=== PATIENT | male | born 1975 | race Caucasian/White ===

== ENCOUNTER 2024-12-30 05:18 | Emergency (ER) | payer BC, SELFPAY ==
[2024-12-30 05:20] VITALS: BP 162/101
[2024-12-30 05:33] VITALS: BP 144/97
--- NOTE | 2024-12-30 05:54 | ED.GENMED ---
History of Present Illness
<Cayetano Garza, DO - Last Filed: 12/30/24 05:56>
General
Chief Complaint: Abdominal Pain
Source: patient
Exam Limitations: none
Time Seen by Provider: 12/30/24 05:49
History of Present Illness
History of Present Illness:
See MDM
Past History
<Cayetano Garza, DO - Last Filed: 12/30/24 05:56>
Past History
ED Past Medical History: Other (Kidney stones)
ED Past Surgical History: None
Social History
Tobacco: Non-smoker
Phy Exam
<Cayetano Garza, DO - Last Filed: 12/30/24 05:56>
Physical Exam
Physical Exam:
See MDM
Course
<Cayetano Garza, DO - Last Filed: 12/30/24 05:56>
Orders/Labs/Results
Orders:
Orders
12/30/24 05:25
IV Insert/Care/Rem.- Treatment PRN
Straight cath- Treatment ONCE
12/30/24 05:53
CT Abd/pelvis W Iv Cont Urgent
Comment:
Reason For Exam: LLQ pain
Ketorolac [Toradol] 30 mg IV NOW STA
12/30/24 05:54
Complete Blood Count/With Diff Urgent
Comprehensive Metabolic Panel Urgent
Lipase Urgent
Urinalysis Reflex To Culture Urgent
Date Specimen was Collected: 12/30/24
Time Specimen was Collected: 05:25
Urine Microscopic Reflex Cult Urgent
12/30/24 06:39
Tamsulosin [Flomax] 0.4 mg PO NOW STA
Abnormal Lab Results
12/30/24
05:54
WBC 4.4 L 10^3/uL
(4.8-10.8)
Absolute Lymphs (auto) 1.1 L 10^3/uL
(1.2-3.4)
Absolute Monos (auto) 0.7 H 10^3/uL
(0.1-0.6)
Monocytes % 14.7 H %
(1.7-9.3)
BUN 21 H mg/dl
(9-20)
Glucose 118 H mg/dl
(70-99)
Urine RBC 3-6 A /HPF
(0-2)
Urine Bacteria (Reflex) Few A
(Negative)
Urine Albumin (Reflex) 2+ A
(Neg - Trace)
12/30/24 05:54
12/30/24 05:54
Vital Signs
Initial and Last Documented VS:
Initial Vital Signs
Temp Pulse Resp BP Pulse Ox
36.5 C 68 20 162/101 97
12/30/24 05:20 12/30/24 05:20 12/30/24 05:20 12/30/24 05:20 12/30/24 05:20
Last Documented Vital Signs
Temp Pulse Resp BP Pulse Ox
36.5 C 67 12 136/91 96
12/30/24 05:20 12/30/24 07:30 12/30/24 07:30 12/30/24 07:05 12/30/24 07:30
<James Garcia MD - Last Filed: 12/30/24 15:39>
Orders/Labs/Results
Orders:
Orders
12/30/24 05:25
IV Insert/Care/Rem.- Treatment PRN
Straight cath- Treatment ONCE
12/30/24 05:53
CT Abd/pelvis W Iv Cont Urgent
Comment:
Reason For Exam: LLQ pain
Ketorolac [Toradol] 30 mg IV NOW STA
12/30/24 05:54
Complete Blood Count/With Diff Urgent
Comprehensive Metabolic Panel Urgent
Lipase Urgent
Urinalysis Reflex To Culture Urgent
Date Specimen was Collected: 12/30/24
Time Specimen was Collected: 05:25
Urine Microscopic Reflex Cult Urgent
12/30/24 06:39
Tamsulosin [Flomax] 0.4 mg PO NOW STA
Abnormal Lab Results
12/30/24
05:54
WBC 4.4 L 10^3/uL
(4.8-10.8)
Absolute Lymphs (auto) 1.1 L 10^3/uL
(1.2-3.4)
Absolute Monos (auto) 0.7 H 10^3/uL
(0.1-0.6)
Monocytes % 14.7 H %
(1.7-9.3)
BUN 21 H mg/dl
(9-20)
Glucose 118 H mg/dl
(70-99)
Urine RBC 3-6 A /HPF
(0-2)
Urine Bacteria (Reflex) Few A
(Negative)
Urine Albumin (Reflex) 2+ A
(Neg - Trace)
12/30/24 05:54
12/30/24 05:54
Vital Signs
Initial and Last Documented VS:
Initial Vital Signs
Temp Pulse Resp BP Pulse Ox
36.5 C 68 20 162/101 97
12/30/24 05:20 12/30/24 05:20 12/30/24 05:20 12/30/24 05:20 12/30/24 05:20
Last Documented Vital Signs
Temp Pulse Resp BP Pulse Ox
36.5 C 67 12 136/91 96
12/30/24 05:20 12/30/24 07:30 12/30/24 07:30 12/30/24 07:05 12/30/24 07:30
<Cayetano Garza, DO - Last Filed: 12/30/24 05:56>
MDM/Problems Addressed
Differential Diagnosis Includes:
Note:
CHIEF COMPLAINT(S)
Abdominal pressure and pain with nausea.
HISTORY OF PRESENT ILLNESS
The patient is a 49-year-old male experiencing abdominal pressure and pain after using the bathroom earlier today. The patient likens the sensation to a previous experience with a kidney stone, characterized by a sensation of pressure from the
inside. The pain is described as intermittent and is associated with nausea. The patient denies any back pain, which can sometimes be associated with kidney stones. He also reports difficulty urinating, similar to prior experiences with kidney
stones. However, patient does state he has a prior history of diverticulitis
PHYSICAL EXAM
General: Alert, no acute distress. Mildly uncomfortable
Skin: Warm, dry.
Head: Normocephalic, atraumatic
Neck: Appears supple, trachea midline.
Eyes, Ears, Nose, Mouth, and Throat: Moist mucous membranes
Cardiovascular: No signs of cyanosis
Respiratory: Respirations are non-labored.
Abdomen: Non-distended. Mild left lower quadrant tenderness without rebound
Musculoskeletal: No deformities
Neurological: No focal neurological deficit observed.
Psychiatric: Cooperative, appropriate mood and affect.
PLAN
- Order a computed tomography (CT) scan of the abdomen with intravenous contrast to evaluate for potential kidney stones or other abdominal pathologies such as diverticulitis.
- Administer intravenous ketorolac (Toradol) for pain management.
- Address nausea as needed.
DIFFERENTIAL DIAGNOSIS
The Differential Diagnosis includes, in no particular order and is not limited to:
- Kidney stones
- Diverticulitis
- Urinary tract infection
- Hydronephrosis
- Gastroenteritis
- Abdominal aortic aneurysm
- Appendicitis
- Intestinal obstruction
- Pyelonephritis
- Hepatobiliary disease
SUMMARY OF ENCOUNTER
The patient was evaluated in the emergency department for abdominal pressure and pain with nausea, reminiscent of a previous kidney stone episode. Given the atypical presentation, a CT scan with contrast was ordered to assess for kidney stones or
other abdominal issues. IV ketorolac was administered for pain relief. The subsequent plan and care summary were to be communicated to the next attending physician due to a shift change.
DISPOSITION
Pending further assessment and care under the incoming physician.
MEDICAL DECISION MAKING
- Complexity of Data Reviewed: Chronic conditions affecting care [Kidney stone history]
- Data:
- Category 1: CT scan of abdomen with contrast ordered to evaluate for stones and other pathologies.
- Risk: Prescription drug management of pain with ketorolac, consideration of imaging with risks associated with contrast use, differential diagnosis involving potential need for surgical intervention.
<Cayetano Garza DO - Last Filed: 12/30/24 05:56>
*Pulse Oximetry
SaO2: 97
Oxygen Mode of Delivery: Room air
<James Garcia MD - Last Filed: 12/30/24 15:39>
*Pulse Oximetry
Patient hypoxic: no (96%)
*Critical Care Note
Total Time (30-74mins, 75-104mins- exclusive of procedures): Not Applicable
<James Garcia MD - Last Filed: 12/30/24 15:39>
Update Note
Update Note:
UPDATE (James Garcia MD)
I have seen and evaluated the patient after signout and reviewed all labs and imaging.
Focused HPI: 49-year-old male with past medical history as noted presents for evaluation of abdominal pain. Patient reports onset of symptoms around 4 AM after he got up to urinate and symptoms have been constant since then. He reports a pressure
sensation left lower abdomen. He has not noticed any dysuria or hematuria this morning. He did not have a bowel movement this morning. Denies any nausea or vomiting. He does have a history of diverticulitis and kidney stones in the past but
cannot recall if symptoms today are similar.
Physical exam: Awake and alert not in distress. Hypertensive but otherwise normal vitals. Abdomen soft, minimally tender left lower quadrant. No peritoneal signs or masses.
Medical Decision Makin-year-old male presents for evaluation of left lower quadrant abdominal pain that started this morning. He does have a history of both nephrolithiasis and diverticulitis. Vitals and exam are as above. He received IV
Toradol prior to my assessment and this improved his pain. He had labs sent off including a CBC and a CMP�CBC shows marginal leukopenia with WBC of 4.4, CMP no clinically significant abnormalities�notably normal renal function. His urinalysis is
positive for blood. We are awaiting results of CT scan.
CT reviewed by me shows obstructive nephrolithiasis distal left ureter with mild hydronephrosis. Awaiting final radiology report. Patient appears comfortable, no evidence of sepsis or infection with acceptable renal function. Stone appears
relatively small. I think he is a reasonable candidate for trial of passage if pain remains well-controlled. Continue to monitor pending final CT report.
Reviewed vision radiology report�2 mm stone noted distal left ureter with hydronephrosis. Patient pain remains well-controlled. Plan to discharge patient instructions for straining urine, Flomax daily until stone passes. Advised to take NSAIDs
for pain and he was prescribed a very short course of oxycodone only for breakthrough severe pain. Stable for discharge for trial of passage. Spoke about follow-up plan and return precautions and all questions answered.
ED Attending Note
<Cayetano Garza, DO - Last Filed: 12/30/24 05:56>
-
Portions of this chart may have been created with voice recognition software.� Occasional wrong word or��sound alike� substitutions may have occurred due to the inherent limitations of voice recognition software.
Discharge Plan
Departure
Patient Disposition: Home (Routine Discharge)
Date of Disposition: 12/30/24
Time of Disposition: 07:14
Patient with high blood pressure during this ER visit?: Yes
Discharge Problem:
Left nephrolithiasis
Instructions: Kidney Stones (DC)
Prescriptions:
New
tamsulosin 0.4 mg capsule
0.4 mg PO DAILY Qty: 10 0RF
oxycodone 5 mg tablet
5 mg PO Q8H PRN (Reason: Pain) Qty: 7 0RF
Referrals:
Fadi Anna MD [Family Provider, Family Practice] - Follow up in 1 week
Alivia Cook MD [Active, Urology] - Call in 1-3 days for appt
Activity Restrictions/Additional Instructions:
Thank you for visiting the Emergency Department at [facility].
1. Please schedule a follow up appointment as directed. Call first thing tomorrow morning to make an appointment.
2. If indicated, please take your medications as instructed and indicated on discharge paperwork.
3. If any of your symptoms do not improve, or persist, or become more severe within 6-12 hours, please return to the emergency department for further care.
4. Please return to the emergency department if you develop a headache, neck pain/stiffness, fever greater than 100.4F, chest pain, shortness of breath, persistent nausea, vomiting, slurred speech, difficulty walking, numbness/tingling, weakness,
signs of infection or any other symptoms that are worrisome to you.
Please call [phone] if you have any questions.
Interventions
Interventions:
*Risk Screen - Suicide Last Done: 12/30/24 05:20
*General Assessment Last Done: 12/30/24 05:20
*Neglect/Abuse Screening Last Done: 12/30/24 05:20
*ED- Fall Risk Assessment Last Done: 12/30/24 05:20
*ED COVID-19 Vaccine History Last Done: 12/30/24 05:20
*ED Influenza Vaccine History Last Done: 12/30/24 05:20
*Nursing Disposition Last Done: 12/30/24 08:00
RO-Mdtbet-Pypxijjucn Assessment Last Done: 12/30/24 06:23
Discharge Date and Time
Discharge Date/Time: 12/30/24 08:00
Print Language: BULGARIAN
[2024-12-30] MEDS: TORADOL 30 MG IV (05:57)
[2024-12-30 06:00] VITALS: BP 140/104
[2024-12-30 06:02] VITALS: BMI 34.9
[2024-12-30 06:05] LABS: Urine Character Clear (Clear)
[2024-12-30 06:07] LABS: Hematocrit 41.8 % (39.0-52.0); Hemoglobin 14.7 g/dL (13.0-18.0); Mean Corp Hgb Conc. 35.2 g/dL (33.0-37.0); Mean Corpuscular Volume 83.9 fL (80.0-94.0); Nucleated Red Blood Cells % 0 % (-); Platelet Count 249 10^3/uL (130-400); Red Cell Dist. Width 12.6 % (11.5-14.5)
[2024-12-30 06:20] LABS: ALT (SGPT) 38 U/L (0-50); AST (SGOT) 51 U/L (17-59); Albumin 4.1 g/dl (3.5-5.0); Alkaline Phosphatase 56 U/L (38-126); Blood Urea Nitrogen 21 mg/dl (9-20); Calcium 9.0 mg/dl (8.4-10.2); Carbon Dioxide 26 mmol/L (22-30); Chloride 107 mmol/L (98-107); Estimated Creatinine Clearance 89 ml/min; Glucose 118 mg/dl (70-99); Lipase 142 U/L (23-300); Potassium 4.0 mmol/L (3.5-5.1); Sodium 136 mmol/L (135-145); Total Protein 6.9 g/dl (6.3-8.2); eGFR > 60.00
[2024-12-30 07:05] VITALS: BP 136/91
[2024-12-30] MEDS: FLOMAX 0.4 MG PO (07:05)
== END 2024-12-30 08:00 | disposition home or self-care (01) ==
LOC: EMR 05:18
PROVIDERS: EMERGENCY PHYSICIAN Student in an Organized Health Care Education/Training Program; FAMILY PHYSICIAN Family Medicine
DX: N20.2 Calculus of kidney with calculus of ureter (principal)
CPT/HCPCS: 99284; 96374; 74177; 80053; 81003; 81015; 83690; 85025; Q9967

== ENCOUNTER 2025-01-03 17:52 | Emergency (ER) | payer BC, SELFPAY ==
[2025-01-03 17:56] VITALS: BP 173/105
[2025-01-03 18:18] LABS: Hematocrit 42.7 % (39.0-52.0); Hemoglobin 14.4 g/dL (13.0-18.0); Mean Corp Hgb Conc. 33.7 g/dL (33.0-37.0); Mean Corpuscular Volume 86.3 fL (80.0-94.0); Nucleated Red Blood Cells % 0 % (-); Platelet Count 267 10^3/uL (130-400); Red Cell Dist. Width 12.4 % (11.5-14.5)
[2025-01-03 18:27] LABS: ALT (SGPT) 34 U/L (0-50); AST (SGOT) 41 U/L (17-59); Albumin 4.3 g/dl (3.5-5.0); Alkaline Phosphatase 58 U/L (38-126); Blood Urea Nitrogen 31 mg/dl (9-20); Calcium 9.6 mg/dl (8.4-10.2); Carbon Dioxide 26 mmol/L (22-30); Chloride 103 mmol/L (98-107); Glucose 101 mg/dl (70-99); Potassium 4.3 mmol/L (3.5-5.1); Sodium 134 mmol/L (135-145); Total Protein 7.3 g/dl (6.3-8.2); eGFR 48.81
[2025-01-03] MEDS: DILAUDID 0.5 MG IV (20:25)
[2025-01-03] MEDS: ZOFRAN 4 MG IV (20:25)
[2025-01-03] MEDS: NSS 1000 IV (20:26)
[2025-01-03 20:28] LABS: Urine Character Clear (Clear)
[2025-01-03 20:33] VITALS: BP 163/96
[2025-01-03 20:35] VITALS: BMI 35.8
[2025-01-03 20:36] LABS: Urine Squamous Cell 0-2 /LPF (Few)
[2025-01-03 20:37] LABS: Urine Red Blood Cell 0-2 /HPF (0-2); Urine White Cell 0-2 /HPF (0-5)
--- NOTE | 2025-01-03 22:32 | ED.GENMED ---
History of Present Illness
General
Chief Complaint: Flank Pain
Source: patient and spouse
Exam Limitations: none
Time Seen by Provider: 01/03/25 19:19
Nursing documentation reviewed up to this point in time: agreed with
History of Present Illness
History of Present Illness:
Patient to the emergency department for evaluation of worsening left flank pain. He was seen in the emergency department on Wednesday and diagnosed with a left distal ureteral 2 mm kidney stone. He was discharged home with pain medications, and
Flomax. He has an appointment scheduled for next week with urology for follow-up. Patient states he was managing with p.o. Tylenol, however states today the pain became much worse. Was brought to the emergency department by spouse for evaluation.
he has not taken any narcotic pain medication.
Past History
Past History
ED Past Medical History: Other (Kidney stones)
ED Past Surgical History: None
Social History
Tobacco: Non-smoker
Review of Systems
Review of Systems
Allergies reviewed?: Yes
All Other Systems: ROS reviewed and negative except as documented in HPI and ROS
Constitutional: Reports no symptoms
EENT: Reports no symptoms
Respiratory: Reports no symptoms
Cardiac: Reports no symptoms
ABD/GI: Reports no symptoms
: Reports flank pain
Musculoskeletal: Reports no symptoms
Skin: Reports no symptoms
Neurological: Reports no symptoms
Psychiatric: Reports no symptoms
Phy Exam
General Physical Exam
General Presentation: moderate distress
General age: appears stated age
General Skin: warm and dry
General Habitus: normal
General Mental: alert
Gastrointestinal Exam
Gastrointestinal Exam: non tender and soft
Musculoskeletal Exam
Musculoskeletal Exam: full ROM and neuro vasc intact
Skin Exam
Skin Exam: normal color, warm/dry and no rash
Psychiatric Exam
Psychiatric Exam: normal mood/affect
Course
Orders/Labs/Results
Orders:
Orders
01/03/25 18:06
CBC/With Diff [Complete Blood Count/With Diff] Urgent
Comprehensive Metabolic Panel Urgent
01/03/25 19:39
0.9% Sodium Chloride 1000 ml [Nss] 1,000 ml IV BOLUS
HYDROmorphone [Dilaudid] 0.5 mg IV NOW STA
Ondansetron Injectable [Zofran] 4 mg IV NOW STA
01/03/25 20:16
Urinalysis Reflex To Culture Urgent
Date Specimen was Collected: 01/03/25
Time Specimen was Collected: 20:13
Urine Microscopic Reflex Cult Urgent
01/03/25 20:19
CT Abd/pel Without Iv Or Oral Urgent
Comment:
Reason For Exam: left flank pain
Abnormal Lab Results
01/03/25 01/03/25
18:06 20:16
Absolute Monos (auto) 1.0 H 10^3/uL
(0.1-0.6)
Monocytes % 15.1 H %
(1.7-9.3)
Sodium 134 L mmol/L
(135-145)
BUN 31 H mg/dl
(9-20)
Creatinine 1.7 H mg/dL
(0.7-1.3)
Glucose 101 H mg/dl
(70-99)
Urine Ketones 3+ A
(Negative)
Ur Occult Blood Reflex 1+ A
(Negative)
Urine Bacteria (Reflex) Few A
(Negative)
Urine Albumin (Reflex) 1+ A
(Neg - Trace)
01/03/25 18:06
01/03/25 18:06
Vital Signs
Initial and Last Documented VS:
Initial Vital Signs
Temp Pulse Resp BP Pulse Ox
98.5 F 87 16 173/105 99
01/03/25 17:56 01/03/25 17:56 01/03/25 17:56 01/03/25 17:56 01/03/25 17:56
Last Documented Vital Signs
Temp Pulse Resp BP Pulse Ox
98.5 F 79 18 163/96 97
01/03/25 17:56 01/03/25 20:33 01/03/25 20:33 01/03/25 20:33 01/03/25 20:33
*Radiology
Radiology exam reviewed: radiology read reviewed
*Pulse Oximetry
SaO2: 97
Oxygen Mode of Delivery: Room air
Patient hypoxic: no
*Critical Care Note
Total Time (30-74mins, 75-104mins- exclusive of procedures): Not Applicable
Update Note
Update Note:
Patient to the emergency department for evaluation of worsening left flank pain. He was seen in the emergency department on Wednesday and diagnosed with a left distal ureter stone. He was discharged home on Flomax and narcotic pain medications. He
reports taking the Flomax but has been using only Tylenol for pain control. Vital signs are stable he remains afebrile. Labs reviewed WBC normal at 6.4. BUN tonight is 31 with a creat of 1.7 -consistent with dehydration as result of limited p.o.
intake due to pain. He was encouraged to increase his fluid intake. CT repeated tonight. Confirms a left UVJ 3 mm stone with mild hydronephrosis. UA is negative for UTI. Discussed case with Dr. Grant. Will plan to discharge home. Patient to
continue Flomax and is encouraged to take the narcotic pain medication as prescribed. He has an appointment next week with urology and will follow through. He was given IV pain medications while in ED and the pain is now well-controlled. There is
no nausea or vomiting. Will discharge home with instructions on signs and symptoms to return to the emergency department. Patient is agreeable with this plan.
ED Attending Note
-
Portions of this chart may have been created with voice recognition software.� Occasional wrong word or��sound alike� substitutions may have occurred due to the inherent limitations of voice recognition software.
Discharge Plan
Departure
Patient Disposition: Home (Routine Discharge)
Date of Disposition: 01/03/25
Time of Disposition: 22:21
Patient with high blood pressure during this ER visit?: No
Condition: Good
Covid-19: Not Applicable
Discharge Problem:
Kidney stone
Instructions: Kidney Stones (DC), How to Strain Your Urine, Narcotic Pain Medication
Prescriptions:
No Action
tamsulosin 0.4 mg capsule
0.4 mg PO DAILY Qty: 10 0RF
oxycodone 5 mg tablet
5 mg PO Q8H PRN (Reason: Pain) Qty: 7 0RF
Referrals:
Fadi Anna MD [Family Provider, Family Practice]
Stand Alone Forms: Return to Work
Activity Restrictions/Additional Instructions:
Follow-up with urology next week as scheduled. Increase your water intake. Take the oxycodone 5 mg every 4-6 hours as needed for severe pain. Avoid NSAIDs at this time. Return to the emergency department for any changes in/worsening of your
symptoms.
Interventions
Interventions:
*Risk Screen - Suicide Last Done: 01/03/25 17:56
*General Assessment Last Done: 01/03/25 19:35
*Neglect/Abuse Screening Last Done: 01/03/25 17:56
*ED- Fall Risk Assessment Last Done: 01/03/25 19:35
*ED COVID-19 Vaccine History Last Done: 01/03/25 19:35
*ED Influenza Vaccine History Last Done: 01/03/25 19:35
*Nursing Disposition Last Done: 01/03/25 22:33
QL-Kcethy-Setqszfmkn Assessment Last Done: 01/03/25 19:35
ED-Male Genitourinary Assessment Last Done: 01/03/25 19:35
Discharge Date and Time
Print Language: UKRAINIAN
[2025-01-03 22:33] VITALS: BP 157/84
== END 2025-01-03 22:44 | disposition home or self-care (01) ==
LOC: EMR 17:52
PROVIDERS: Nurse Practitioner; EMERGENCY PHYSICIAN Student in an Organized Health Care Education/Training Program; FAMILY PHYSICIAN Family Medicine
DX: N13.2 Hydronephrosis with renal and ureteral calculous obstruction (principal)
CPT/HCPCS: 96374; 96375; 96361; 99284; 74176; 80053; 81003; 81015; 85025